=== PATIENT | male | born 1955 | race African-American/Black ===

== ENCOUNTER 2019-09-22 11:05 | Emergency (ER) | payer MEDICARE, MEDICAID ==
[~2019-09-22] VITALS: Ht 175.3 cm; Wt 97.9 kg
[2019-09-22] MEDS ORDERED: TOPROL XL25 MG PO (11:22)
[2019-09-22] MEDS ORDERED: [UNRECOGNIZED DRUG - OTHER] PO (11:23)
[2019-09-22] MEDS ORDERED: TRIAMTERENE/HCT1 CA1 PO (11:23)
[2019-09-22] MEDS ORDERED: NAMENDA XR28 MG PO ×2 (11:24)
[2019-09-22] MEDS ORDERED: LYRICA 75 MG CA75 MG PO (11:24)
[2019-09-22] MEDS ORDERED: B-121000 MC2 PO (11:25)
[2019-09-22] MEDS ORDERED: STOOL SOFTENER (11:25)
[2019-09-22] MEDS ORDERED: KLOR-CON M2020 MEQ PO ×2 (11:27→11:29)
[2019-09-22] MEDS ORDERED: CRESTOR40 MG PO (11:27)
[2019-09-22] MEDS ORDERED: ASA81BEC PO (11:28)
[2019-09-22] MEDS ORDERED: PROTONIX 20 MG20 MG PO (11:28)
[2019-09-22] MEDS ORDERED: FUROSEMIDE 20 M20 MG PO (11:28)
[2019-09-22 11:29] LABS: ABSOLUTE BASOPHILS 0.1 thou/uL (0.0-0.2); ABSOLUTE EOSINOPHILS 0.1 thou/uL (0.0-0.7); ABSOLUTE LYMPHOCYTES 1.2 thou/uL (0.8-5.3); ABSOLUTE MONOCYTES 0.6 thou/uL (0.0-1.2); ABSOLUTE NEUTROPHILS 6.2 thou/uL (1.6-8.1); BASOPHILS 0.9 %; EOSINOPHILS 0.7 %; HEMATOCRIT 43.8 % (42.0-52.0); HEMOGLOBIN 15.5 gm/dL (14.0-18.0); LYMPHOCYTES 14.6 %; MCH 30.8 pg (26.0-34.0); MCHC 35.4 g/dL (28.0-37.0); MONOCYTES 7.6 %; MPV 8.8 fl. (7.2-11.1); NUCLEATED RBCS 0 /100WBC; PLATELET COUNT* 332 thou/uL (150-400); POLYS 76.2 %; RBC 5.03 mil/uL (4.50-6.00); RDW-CV 13.9 % (10.5-14.5); WBC 8.2 thou/uL (4.0-11.0)
[2019-09-22] MEDS ORDERED: ZANAFLEX2 M1 PO (11:29)
[2019-09-22] MEDS ORDERED: FLOMAX0.4 MG PO (11:30)
[2019-09-22 11:36] LABS: CALCIUM 8.9 mg/dL (8.5-10.1); CREATININE 1.2 mg/dL (0.6-1.3)
[2019-09-22 11:37] LABS: APTT 25.4 Seconds (25.0-31.3); INR 1.1; PROTIME 10.9 Seconds (9.20-11.50)
[2019-09-22 11:38] LABS: POTASSIUM 2.5 mmol/L (3.5-5.1)
[2019-09-22 11:51] LABS: ALBUMIN 3.4 g/dL (3.4-5.0); CK-MB MASS 1.2 ng/mL (<0.5-3.6); TOTAL BILIRUBIN 0.8 mg/dL (<0.1-1.0); TOTAL PROTEIN 7.6 g/dL (6.4-8.2)
[2019-09-22 12:40] VITALS: BP 144/105
--- NOTE | 2019-09-22 16:31 | EKG ---
[place] [address] ELECTROCARDIOGRAM REPORT Name: CHRISTY ESPINOZASRINI Puja Room: [facility]#: [id number] Admission: 09/22/19 Attend Phys: Discharge: 09/22/19 Date of : 51 Date of Service: 09/22/19 1109 Report #: [id number] THIS REPORT FOR: //name// 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
== END 2019-09-22 12:40 | disposition home or self-care (01) ==
LOC: M.ERS 11:05
PROVIDERS: Family Medicine
DX: T81.89XA Other complications of procedures, not elsewhere classified, initial encounter (principal); E87.6 Hypokalemia; R40.0 Somnolence; I10 Essential (primary) hypertension; G30.9 Alzheimer's disease, unspecified